=== PATIENT | male | born 2000 | race Caucasian/White ===

== ENCOUNTER → 2024-05-16 10:35 | Outpatient (REF) | payer OTHER, SELFPAY | LOC: HWRAD 10:35 | PROVIDERS: ATTENDING PHYSICIAN Physician Assistant Medical | DX: R07.89 Other chest pain (principal); Z78.9 Other specified health status; M79.604 Pain in right leg; R07.81 Pleurodynia | CPT/HCPCS: 71275; Q9967 ==

== ENCOUNTER 2024-05-16 16:24 | Inpatient (IN) | payer OTHER, SELFPAY ==
[2024-05-16] VITALS (10 sets, daily range): BP systolic 117–142; BP diastolic 67–82; BMI 28.1
--- NOTE | 2024-05-16 12:46 | ED.GENMED ---
History of Present Illness
General
Chief Complaint: Chest Pain
Time Seen by Provider: 05/16/24 12:33
History of Present Illness
History of Present Illness:
23-year-old male without significant past medical history presenting to the emergency department with known pulmonary embolism. Patient reports he had an 8-hour plane ride from [place] 2 weeks ago. About a week later started to have right lower
extremity pain. On Sunday, 4 days ago he started to have right-sided chest pain. He went to see his primary care doctor who ordered a CAT scan outpatient. He had a CAT scan completed today which showed pulmonary embolism, and was advised to come
to the hospital today. Denies any prior history of blood clots. Reports the chest pain was all right-sided, which has overall improved. Denies any present difficulty breathing. Denies any known family history of blood clots or thromboembolism.
Denies any use of medications or supplements. Denies any recent fever or illness. Denies additional acute medical complaints.
Phy Exam
Physical Exam
Physical Exam:
General: Well-appearing, no clinical signs of dehydration, nontoxic and in no acute distress
HEENT: protecting airway
Neck: appears supple
CV: Normal heart rate, regular rhythm, no evidence of cyanosis
Resp: No accessory muscle use, no increased work of breathing, lungs clear to auscultation bilaterally
Abd: Soft and non-distended, no tenderness to palpation, normal bowel sounds
Extremities: No deformities, no swelling, no erythema, pulses and sensation intact
Neuro: alert, no focal neurologic deficit
: deferred
Rectal: deferred
Psych: Normal affect
Skin: Intact
Course
Orders/Labs/Results
Orders:
Orders
05/16/24 12:35
Electrocardiogram (*1) Stat
Reason for Study: Other
Other Reason for Exam: chest pain
EKG- Treatment ONCE
05/16/24 12:44
Complete Blood Count/With Diff Urgent
Comprehensive Metabolic Panel Urgent
NT-proBNP Urgent
PTT Urgent
Prothrombin Time Urgent
Troponin I Q3H
05/16/24 13:00
Heparin 7,700 units IV NOW STA
Heparin 84547 Units/250 ml 25,000 units in 250 ml IV PER PROTOCOL
Weight to be used for heparin protocol in kilograms (kg):: 96.6
Protocol:: DVT/PE
PTT Goal Range to be used:: PTT 73 to 111 seconds
Order type:: Initial
INITIAL Infusion Dose (UNITS/KG/hr) & then follow protocol:: 18 units/kg/hr
Infusion Dose in UNITS/hr & then follow protocol (UNITS/hr):: 1,700
INFUSION RATE in mL/hr & then follow protocol (mL/hr):: 17
For DVT/PE algorithm, re-bolus for low PTT?: Yes
PTT less than or equal to 64 seconds:: Re-bolus 80 units/kg (max 10,000units). Increase by 400 units/hr
(+ 4mL/hr)
PTT 64.1 to 72.9 seconds:: Re-bolus 40 units/kg (max 5,000 units). Increase by 200 units/hr
(+ 2mL/hr)
PTT 73 to 111 seconds:: Target Range. No change in rate.
PTT 111.1 to 130.9 seconds:: Decrease rate by 200 units/hr (- 2 mL/hr)
PTT 131 to 199.9 seconds:: HOLD for 1 hr. Then decrease by 300 units/hr (- 3mL/hr)
PTT greater than or equal to 200 seconds:: HOLD for 2 hrs & Notify Provider. Then decrease by 400 units/hr
(- 4mL/hr)
Lab follow-up:: Each change, PTT q6h until 2 consecutive are therapeutic. Then
PTT daily.
Pharmacy Request to Place See Dose Instructions IV DIRECTED
Pharmacy Request to Place See Dose Instructions PO NOW STA
Discontinue all Active Warfarin orders?: Yes
Nursing to Place Non Medication Order As Directed
Physician Order: PTT 6 hours after initial start of Heparin infusion
05/16/24 15:45
Troponin I Q3H
Abnormal Lab Results
05/16/24
12:44
Absolute Monos (auto) 0.7 H 10^3/uL
(0.1-0.6)
Lymphocytes % 19.5 L %
(20.5-51.1)
Monocytes % 10.8 H %
(1.7-9.3)
05/16/24 12:44
Vital Signs
Initial and Last Documented VS:
Initial Vital Signs
Temp Pulse Resp BP Pulse Ox
97.8 F 81 16 142/77 99
05/16/24 12:22 05/16/24 12:22 05/16/24 12:22 05/16/24 12:22 05/16/24 12:22
Last Documented Vital Signs
Temp Pulse Resp BP Pulse Ox
97.8 F 81 16 142/77 99
05/16/24 12:22 05/16/24 12:22 05/16/24 12:22 05/16/24 12:22 05/16/24 12:22
MDM/Problems Addressed
MDM/Problems Addressed:
23-year-old male without past medical history presenting to the emergency department for known pulmonary embolism. Vital signs on arrival are normal.
CT imaging reviewed on patient's arrival, bilateral pulmonary embolism burden with pulmonary infarcts and concern for right heart strain. Patient however is hemodynamically stable, well-appearing. EKG obtained, no acute ischemic abnormality. Will
plan for laboratory analysis. Will also call PERT alert given embolic burden
12:45 - PERT alert called
12:47 -discussed with ICU, given hemodynamic stability, standard of care. Will start heparin drip and admit to hospitalist service.
*EKG
Interpreted by ED Provider?: Yes
EKG Intrepretation Date: 05/16/24
EKG Intrepretation Time: 13:04
Interpretation: normal
Comparison EKG: no comparison EKG present
Heart Rate: 70
Rate: normal
Rhythm: sinus
[place]: normal axis
Interval: normal interval
QRS Pattern: normal QRS
Ischemia: no ischemia
*Critical Care Note
Total Time (30-74mins, 75-104mins- exclusive of procedures): 35
comment:
The high probability of a clinically significant, sudden or life threatening deterioration of the cardiovascular system(s) required my full and direct attention, intervention and personal management. The aggregate critical care time was 35 minutes.
This time is in addition to time spent performing reported procedures but includes the following:
[x] Data Review and interpretation
[x] Patient assessment and monitoring of vital signs
[x] Documentation
[x] Medication orders and management
ED Attending Note
-
Portions of this chart may have been created with voice recognition software.� Occasional wrong word or��sound alike� substitutions may have occurred due to the inherent limitations of voice recognition software.
Discharge Plan
Departure
Referrals:
Shaun Hernandez MD [Family Provider] -
Interventions
Interventions:
*Risk Screen - Suicide Last Done: 05/16/24 12:22
*General Assessment Last Done: 05/16/24 12:41
*Neglect/Abuse Screening Last Done: 05/16/24 12:22
*ED COVID-19 Vaccine History Last Done: 05/16/24 12:22
ED- Cardiac Assessment Last Done: 05/16/24 12:41
Discharge Date and Time
Print Language: MOROCCAN
[2024-05-16 12:57] LABS: % Basophils 0.5 % (0-2); % Eosinophils 1.7 % (0-6); % Immature Granulocytes 0.3 % (0-0.5); % Lymphocytes 19.5 % (20.5-51.1); % Monocytes 10.8 % (1.7-9.3); % Neutrophils 67.2 % (42.2-75.2); Absolute Eosinophils 0.1 10^3/uL (0-0.7); Absolute Lymphocytes 1.3 10^3/uL (1.2-3.4); Absolute Monocytes 0.7 10^3/uL (0.1-0.6); Absolute Neutrophils 4.5 10^3/uL (1.4-6.5); Hematocrit 44.5 % (39.0-52.0); Hemoglobin 15.9 g/dL (13.0-18.0); Mean Corp Hgb Conc. 35.7 g/dL (33.0-37.0); Mean Corpuscular Hgb 30.1 pg (27.0-31.0); Mean Corpuscular Volume 84.3 fL (80.0-94.0); Mean Platelet Volume 9.6 fL (7.4-10.4); Nucleated Red Blood Cells % 0 % (-); Platelet Count 255 10^3/uL (130-400); Red Blood Cell Count 5.28 10^6/uL (4.70-6.10); Red Cell Dist. Width 11.9 % (11.5-14.5); White Blood Cell Count 6.7 10^3/uL (4.8-10.8)
[2024-05-16 13:12] LABS: ALT (SGPT) 15 U/L (0-50); AST (SGOT) 20 U/L (17-59); Albumin 4.5 g/dl (3.5-5.0); Alkaline Phosphatase 63 U/L (38-126); Blood Urea Nitrogen 13 mg/dl (9-20); Calcium 9.8 mg/dl (8.4-10.2); Carbon Dioxide 27 mmol/L (22-30); Chloride 106 mmol/L (98-107); Estimated Creatinine Clearance > 125 ml/min; Glucose 93 mg/dl (70-99); Potassium 4.8 mmol/L (3.5-5.1); Sodium 138 mmol/L (135-145); Total Bilirubin 0.7 mg/dl (0.2-1.3); Total Protein 6.9 g/dl (6.3-8.2); eGFR > 60.00
[2024-05-16 13:17] LABS: APTT 27.4 Sec (23.4-35.0)
[2024-05-16 13:22] LABS: NT-proBNP < 20.0 pg/ml; Troponin I < 0.012 ng/ml
[2024-05-16] MEDS: HEPARIN 7700 UNITS IV (13:22)
[2024-05-16] MEDS: HEPARIN 25000 UNITS/250 ML IV (13:24)
[2024-05-16] MEDS: FLUSH (NSS) 1 FLUSH IV (15:47)
--- NOTE | 2024-05-16 15:59 | CON.PUL ---
Consultation
Consultation Request
Date/Time Consultation Requested: 05/16/24
Date/Time Consultation Performed: 05/16/24
Performing Provider: Truman
Reason for Consultation: PE
Medical History
-
History of Present Illness:
Patient is a 23-year-old male with previous history of gastroparesis presenting to with right lower extremity pain and right-sided chest pain. He was previously on an 8-hour plane ride from [place] 2 weeks ago. He underwent CT chest as an
outpatient demonstrating multiple bilateral pulmonary embolism. Some were noted to be chronic. He denies any prior history of known lung disease. He is a non-smoker. He does occasionally smoke marijuana. Does not vape. Denies any family history
of VTE or prior personal history.
PERT alert called, not showing signs of hemodynamic instability or right heart strain. He is not a tPA candidate. He is started on IV heparin.
Past Medical History
Past Medical History: Other (see list below)
Social History
Tobacco: Non-smoker
Alcohol: None
Drug: None
Family History
Family History: Reviewed & Not Pertinent
Allergies / Home Medications
Allergies
Allergy/AdvReac Type Severity Reaction Status Date / Time
azithromycin [From Zithromax] Allergy Rash Verified 05/16/24 12:28
Home Medications
�Medication �Instructions �Recorded �Confirmed �Last Taken �Type
No Meds [No Current Medications] 05/16/24 05/16/24 Unknown History
Review of Systems
-
History Source: Patient
All other systems: Negative unless noted
Vitals / Labs / Diagnostic Testing
Vital Signs
Temp Pulse Resp BP Pulse Ox
97.8 F 72 17 128/76 96
05/16/24 12:22 05/16/24 15:00 05/16/24 15:00 05/16/24 15:00 05/16/24 15:00
Lab Data
05/16/24 12:44
05/16/24 12:44
Laboratory Results
05/16/24
12:44
PT 13.0
INR 1.00
APTT 27.4
Diagnostic Testing:
Physical Exam
-
HEENT: Normocephalic, Anicteric and Moist Mucous Membranes
Cardiovascular: S1/S2 and Regular Rhythm
Respiratory: Clear and Non-Labored Respirations
GI: Soft, Non Distended and Non Tender
Neurology: Awake, Alert, Oriented, AO x 3 and No Motor Deficits
Skin: Warm, Dry and Good Color
General: Comfortable and Other (NAD)
Assessment
-
Patient is a 23-year-old male with previous history of gastroparesis presenting to with right lower extremity pain and right-sided chest pain. He was previously on an 8-hour plane ride from [place] 2 weeks ago. He underwent CT chest as an
outpatient demonstrating multiple bilateral pulmonary embolism. Some were noted to be chronic. Denies any family history of VTE or prior personal history. We are consulted for eval 05/16/24.
Acute B/L PE, provoked
Long plan ride/sedentary behavior
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
wisdom tooth extraction
gastroparesis 2014
Plan
No oxygen was needed on admission, currently saturating >90% on RA
No prior history of lung disease is noted
CXR/CT obtained indicating multiple bilateral PE without evidence of right heart strain
PERT alert was called, not a candidate
Troponin and proBNP negative
He is started on IV heparin
Denies family history or personal history of VTE
This is likely a provoked case
We discussed management of provoked PE and continuation on his outpatient
CM consult for eventual transition to OAC
Can transition once available
Weight loss measures recommended
Encouraged to maintain a more active lifestyle
Will need outpatient pulmonary evaluation in our office for PFTs and 6MWT
Reviewed with patient and mother at bedside
We will follow
Diagnostic Data
Chest X-Ray:
CT Scan: CTA 05/16/24- Pulmonary emboli involving multiple bilateral lower lobe subsegmental pulmonary arteries. A few of the pulmonary emboli involving the left lower lobe subsegmental pulmonary arteries are nonocclusive and wall adherent, and given
the appearance, may be chronic.
Small pulmonary infarcts involving the right lower lobe.
Elevated RV to LV ratio with reflux into the IVC which may represent right heart strain. Echocardiogram could be performed for further evaluation.
Echo:
PFT's:
Reports and relevant images were personally reviewed.
Total time spent on this consultation __77__ includes review of history, physical exam, medications, laboratory data, personal review of imaging, extensive review of outpatient records, discussion with care team and respiratory therapy.
--- NOTE | 2024-05-16 16:25 | HPS.HSE ---
Family Physician
-
Family Physician: Shaun Hernandez
Chief Complaint
-
Pulmonary emboli on outpatient CT
History of Present Illness
Patient is a healthy 23-year-old who is here because of bilateral pulmonary emboli found on outpatient chest CT scan. He had a travel to [facility] [place] 2 weeks ago. States when he got back he had pain in his right leg with no swelling or redness.
The pain started to subside and was resolved 4 days ago. Right at the same time, he started to experience a pleuritic chest pain. He mentions the pain was more central and radiated to the neck. Following the CP, he visited his PCP in [facility] on Sunday and an outpatient CT scan was scheduled for him this morning. The CT scan today revealed pulmonary emboli involving multiple bilateral lower lobe subsegmental pulmonary arteries. Small pulmonary infarcts involving the right
lower lobe and elevated RV to LV ratio with reflux into the IVC which may represent right heart strain. Denies any fever or palpitations during this time. Denies any recent medication changes or use of recreational drugs. Does not give a history
of prior blood clots. Denies any history of hypercoagulation in family members. The chest pain currently is more lateralized to the right side and does not radiate.
Medical History
Past Medical History
Past Medical History: Reports None
Past Surgical History: Reports None
Social History
Tobacco: Non-smoker
Alcohol: Occasional
Drug: None
Personal: Single
Living: With Family
Family History
Family History: Not pertinent and Other (No history of blood clots in family)
Allergies / Home Medications
Allergies reflects when Allergies were last updated in [facility].
Home Medications with original date entered in [facility]
Allergy/Medication List:
Allergies
Allergy/AdvReac Type Severity Reaction Status Date / Time
azithromycin [From Zithromax] Allergy Rash Verified 05/16/24 12:28
Home Medications
No Meds [No Current Medications] 05/16/24
Review of Systems
-
History Source: Patient
A 12 point ROS was completed and negative except as noted: Yes
Physical Exam
Vital Signs
Vital Signs
Temp Pulse Resp BP Pulse Ox
97.8 F 77 16 126/82 97
05/16/24 12:22 05/16/24 16:00 05/16/24 16:00 05/16/24 16:00 05/16/24 16:00
Physical Exam
General: Well Developed and No Apparent Distress
HEENT: NormoCephalic and Atraumatic
Respiratory: Clear
Cardiac: S1/S2 and Regular Rhythm
GI: Soft, Non Tender and Non Distended
Musculoskeletal: No Cyanosis and No Edema
Skin: Warm
Neuro: Awake, Alert, Oriented and AO x 3
Psych: Calm
Laboratory Results
-
05/16/24 12:44
05/16/24 12:44
Laboratory Results
PT 13.0 Sec (11.4-14.6) 05/16/24 12:44
INR 1.00 05/16/24 12:44
APTT 27.4 Sec (23.4-35.0) 05/16/24 12:44
Total Bilirubin 0.7 mg/dl (0.2-1.3) 05/16/24 12:44
AST 20 U/L (17-59) 05/16/24 12:44
ALT 15 U/L (0-50) 05/16/24 12:44
Alkaline Phosphatase 63 U/L (38-126) 05/16/24 12:44
Troponin I < 0.012 ng/ml 05/16/24 12:44
Data Reviewed
-
Critical Care Time (in minutes): 30
Impression/Plan
-
IMPRESSION:
Bilateral pulmonary emboli
PLAN:
Heparin drip started
PERT alert given embolic burden
EKG--no acute ischemic abnormality
Echo
CBC and heme stool
Doppler ultrasound
Pulmonary consult
Case management consult to check cost of Eliquis
Diet regular
Activity as tolerated
CODE STATUS: full code
[2024-05-16 16:30] LABS: Troponin I < 0.012 ng/ml
--- NOTE | 2024-05-16 16:30 | W.PN.UPDATE ---
Update Note
Progress Note Update
I personally performed a history and physical exam of the patient and discussed management with the resident. I reviewed the resident's note and agree with the documented findings and plan of care HPI/CC.
23-year-old gentleman with no past medical history presents with right leg pain and chest pain after recent traveling in [place] and [place] flight journey.
initially noticed right leg pain without swelling and then after that he had normal right leg pain but developed acute chest pain in the same day on Sunday. Went to see PCP who requested a chest CT which showed bilateral PE so referred to the
hospital.
Has some right-sided pleuritic chest pain but no dizziness. He is hemodynamically stable. Chest is clear. Not tachycardic.
Chest CT shows bilateral right more than left subsegmental PE with right pulmonary infarct. There was reflux of contrast IVC raising concern of increased right-sided pressure. The RV to LV ratio is more than 1 again concerning for RV strain.
Again he is hemodynamically stable. Not hypoxic.
No indication for acute thrombolysis.
Will get a echocardiogram to document the baseline RV pressures. Start on IV heparin. Check an ultrasound of the legs. Heme test stools. Consult pulmonary.
Discussed the diagnosis and treatment plan with the mother at bedside as well.
[2024-05-16] MEDS: TYLENOL 650 MG PO (20:00)
[2024-05-16] MEDS: TORADOL 15 MG IV (22:39)
[2024-05-17 01:48] LABS: APTT 63.4 Sec (23.4-35.0)
[2024-05-17] MEDS: HEPARIN 7700 UNITS IV (02:14)
[2024-05-17 03:00] VITALS: BP 118/67
[2024-05-17] MEDS: HEPARIN 25000 UNITS/250 ML IV (03:26)
[2024-05-17 07:15] VITALS: BP 130/80
[2024-05-17 09:48] LABS: Hematocrit 43.7 % (39.0-52.0); Hemoglobin 15.5 g/dL (13.0-18.0); Mean Corp Hgb Conc. 35.5 g/dL (33.0-37.0); Mean Corpuscular Hgb 29.2 pg (27.0-31.0); Mean Corpuscular Volume 82.5 fL (80.0-94.0); Mean Platelet Volume 9.8 fL (7.4-10.4); Platelet Count 269 10^3/uL (130-400); Red Cell Dist. Width 11.9 % (11.5-14.5); White Blood Cell Count 5.6 10^3/uL (4.8-10.8)
[2024-05-17 10:02] LABS: APTT 111.4 Sec (23.4-35.0)
--- NOTE | 2024-05-17 10:51 | W.PN.HOSP.TC ---
Today's Communication/Plan
-
Trend PTT- Follow-up with case management regarding cost of Eliquis
Assessment / Plan
Assessment / Plan
Patient is a 23-year-old male presenting to with outpatient chest CT demonstrating multiple bilateral pulmonary embolism. Some were noted to be chronic.
-Continue IV heparin-trend PTT
-Currently saturating 98% on RA, No oxygen needed
-Troponin and proBNP negative, echo shows mild MS, mild RVE, no pulmonary hypertension, EF 55 to 60%
- consult for eventual transition to OAC--can transition once available
-Appreciate pulm--outpatient PFTs
Anticipated Discharge: Within 24 hours
Subjective/Interval History
-
Date of Service: May 17, 2024
Patient is currently hemodynamically stable and does not have significant chest pain. Mentions he had difficulty breathing last night around 10 PM w progressive R-sided chest pain. Symptoms subsided after receiving a dose of Toradol. Did not
require supplemental O2 overnight.
Objective Data
-
Labs:
Laboratory Results
05/17/24 05/17/24 05/17/24
01:28 09:09 14:30
WBC 5.6
Hgb 15.5
Hct 43.7
Plt Count 269
APTT 63.4 H 111.4 H Pending
Vital Signs:
Vital Signs
Temp Pulse Resp BP Pulse Ox
97.3 F 65 16 130/80 98
05/17/24 07:15 05/17/24 07:15 05/17/24 07:15 05/17/24 07:15 05/17/24 07:15
Review of Systems
-
History Source: Patient
All other systems: Reviewed and negative
Cardiac: Reports Chest Pain (Mild pleuritic chest pain at this time)
Physical Exam
-
General: Well Developed and No Apparent Distress
Respiratory: Clear to Auscultation and Non Labored Respirations
Cardiac: Regular Rhythm and S1/S2
Neuro: Awake, Alert, Oriented and AO x 3
Psych: Calm
[2024-05-17 11:35] VITALS: BP 137/81
--- NOTE | 2024-05-17 12:01 | W.PN.PUL.V3 ---
Today's Communication / Plan
-
Intravenous heparin
Convert to oral anticoagulant and treat for minimum of 3-6 months
Outpatient pulmonary evaluation
Consider hypercoagulable workup-this event likely provoked
Assessment
-
Patient is a 23-year-old male with previous history of gastroparesis presenting to with right lower extremity pain and right-sided chest pain. He was previously on an 8-hour plane ride from [place] 2 weeks ago. He underwent CT chest as an
outpatient demonstrating multiple bilateral pulmonary embolism. Some were noted to be chronic. Denies any family history of VTE or prior personal history. We are consulted for eval 05/16/24.
Acute B/L PE, provoked
Long plan ride/sedentary behavior
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
wisdom tooth extraction
gastroparesis 2014
Plan
Respiratory status improved
Supplemental oxygen as needed
Increase activity
Nebulizers if needed-currently not bronchospastic
CT chest reviewed-multiple bilateral pulmonary emboli with possible right ventricular strain
Echocardiogram 05/16/2024-EF 55-60%, mild mitral regurgitation, no evidence of pulmonary hypertension, mild right ventricular enlargement
Lower extremity ultrasound 05/16/2024-no evidence of DVT in both lower extremities
Troponin and proBNP negative
Continue IV heparin
Convert to oral anticoagulant and treat for minimum of 3 months
Subsequent outpatient evaluation and determination on when to discontinue anticoagulants and whether hypercoagulable workup is needed
Benefits and risks of thrombolytics reviewed-risks outweigh benefits-continue with conservative therapy
Weight loss measures recommended
Encouraged to maintain a more active lifestyle
Will need outpatient pulmonary evaluation in our office for PFTs and 6MWT
Diagnostic Data
Chest X-Ray:
CT Scan: CTA 05/16/24- Pulmonary emboli involving multiple bilateral lower lobe subsegmental pulmonary arteries. A few of the pulmonary emboli involving the left lower lobe subsegmental pulmonary arteries are nonocclusive and wall adherent, and given
the appearance, may be chronic.
Small pulmonary infarcts involving the right lower lobe.
Elevated RV to LV ratio with reflux into the IVC which may represent right heart strain. Echocardiogram could be performed for further evaluation.
Reports and relevant images were personally reviewed.
.
Subjective Data
-
Date of Service:
Date of Service: May 17, 2024
Chief Complaint: Pulmonary Follow Up and VTE Follow Up
Subjective:
Feels better, no shortness of breath, no pleurisy, no chest congestion, productive cough, mopped assist, abdominal pain or leg swelling
Review of Systems
General: Other (Per HPI)
Objective Data
Data Reviewed
Vital Signs / I&O:
Vital Signs
Temp Pulse Resp BP Pulse Ox
97.5 F 78 16 137/81 98
05/17/24 11:35 05/17/24 11:35 05/17/24 11:35 05/17/24 11:35 05/17/24 11:35
SaO2: 98
Physical Exam
General: Respiratory Distress (n) and Comfortable
HEENT: Normocephalic, Anicteric and Moist Mucous Membranes
Cardiovascular: Regular Rhythm, Murmur, Rub, Peripheral Edema (n), Calf Tenderness (n) and Michael's Sign (n)
Respiratory: Clear, Wheeze, Crackles (n), Rhonchi (n), Non-Labored Respirations, Accessory Resp Muscle Use (n) and Stridor (n)
GI: Soft, Non Distended and Non Tender
Neurology: Awake, Alert and No Motor Deficits
Skin: Warm, Good Color, Cyanosis (n), Jaundice (n) and Rash (n)
Labs/Micro/Reports
Lab Data
05/17/24 09:09
05/16/24 12:44
Laboratory Results
05/16/24 05/16/24 05/17/24
12:44 19:17 01:28
PT 13.0
INR 1.00
APTT 27.4 80.0 H 63.4 H
05/17/24
09:09
PT
INR
APTT 111.4 H
--- NOTE | 2024-05-17 12:59 | W.PN.UPDATE ---
Update Note
Progress Note Update
I saw and evaluated the patient. I reviewed the resident�s note and agree with findings and plan as documented in the resident�s note.
Patient had some left-sided pleuritic chest pain which got relieved by Toradol. He gets now only right-sided pleuritic discomfort on deep inspiration. Otherwise he is stable without shortness of breath. Hemodynamically stable. Not on oxygen.
Chest clear.
No evidence of DVT. Continue with IV heparin till we know his coverage for Eliquis.
If okay from pulmonary standpoint we will discharge him later today.
He is made aware about risk of bleeding and what to do when bleeding happens- stop eliquis and come back to ER.
No contact sports with AC.
He will follow with pulm as OP on DC.
Total time of DC 32 min.
[2024-05-17 15:15] VITALS: BP 124/72
[2024-05-17 15:33] LABS: APTT 52.7 Sec (23.4-35.0)
--- NOTE | 2024-05-17 15:43 | CM ---
Patient seen at bedside with mother and father present. Patient remains on patient mother insurance. Patient lives with parents in 2 story home. Patient PCP is Dr. Hernandez and he uses the [facility]. Patient has no DME at home. Patient plan
is for discharge home with family supports. CM called to pharmacy regarding cost, 25.00$ per pharmacy and [employer], CM will provide coupon. CM will continue to follow for discharge planning needs.
Plan; home with no needs.
[2024-05-17] MEDS: ELIQUIS 10 MG PO (18:43)
--- NOTE | 2024-05-17 19:04 | W.DS.TRANS ---
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
-
Discharge Instructions:
Discharge Diagnosis/Procedures Subsegmental pulmonary emboli
Diet As tolerated
Activity As tolerated
Driving Restrictions As prior to admission
Bathing Restrictions OK to Shower
Instructions:
Stand-Alone Forms:
Changes to Home Medications: Yes
Discharge Medications:
DC Medications w/original date entered in [facility]
acetaminophen 325 mg tablet 650 mg (2 x 325 mg) PO Q6HPRN PRN mild pain/ fever>100.5F #1 tab 05/17/24
apixaban 5 mg (74 tabs) tablets in a dose pack (Eliquis DVT-PE Treat 30D Start) See Rx Instructions PO .COMPLEX #74 ea 05/17/24
ibuprofen 200 mg tablet 400 mg (2 x 200 mg) PO Q8H PRN Pain #1 tab 05/17/24
Home Medication Changes
New medication: Eliquis 10 mg daily for 7 days, 5 mg twice daily for next 30 days
Pending Results: No
--- NOTE | 2024-05-18 10:30 | W.DCSUMMARY ---
Discharge Summary
Discharge Data
Date of Admission: 05/16/24
Date of Discharge: 05/17/24
Total time spent discharging patient (in min): 40
-
Pending Results: No
Hospital Course
Patient is a healthy 23-year-old who came to the ED with bilateral pulmonary emboli found on outpatient chest CT scan. He had a travel to [facility] 2 weeks ago. Stated when he returned, he noticed pain in his right leg but no swelling or
redness. The pain started to subside and was resolved 4 days prior to admission however on the same day, he started to experience a pleuritic chest pain. He mentioned the pain was more central and radiated to the neck. Following the CP, he visited
his PCP in [facility] and an outpatient chest CT was scheduled for him (05/16). CT revealed pulmonary emboli involving multiple bilateral lower lobe subsegmental pulmonary arteries (some noted to be chronic), small pulmonary infarcts
involving the right lower lobe and elevated RV/LV with reflux into the IVC suggesting right heart strain. He denied any recent medication changes or use of recreational drugs. Did not give a history of prior blood clots in himself or family
members. On admission, he had right sided pleuritic chest pain but his hemodynamics were stable. EKG was normal. PERT alert was immediately placed and heparin drip started. Patient was admitted for IV anticoagulation and further evaluation.
# Bilateral pulmonary emboli most likely provoked in the setting of long plane ride/sedentary behavior: Patient continued to receive IV heparin during stay and received first dose of Eliquis prior to discharge. He was consistently saturating > 94%
on RA and did not need supplemental oxygen. Troponin and proBNP negative, echo showed mild AL, mild RVE, no pulmonary hypertension, EF 55 to 60%. Pulmonary service recommended oral anticoagulant for minimum of 3-6 months and outpatient PFT.
Patient is in good clinical condition and is stable for discharge to home.
Discharge Plan
-
Patient Disposition: Home (Routine Discharge)
Discharge Diagnosis/Procedures: Subsegmental pulmonary emboli
Diet: As tolerated
Activity: As tolerated
Driving Restrictions: As prior to admission
Bathing Restrictions: OK to Shower
Referrals:
Roxy Laughlin, [Active] - in two to four weeks
(Dr. Laughlin or ACTIVE DIRECTORY ENGINEER
PFTs and 6-minute walk test)
Shaun Hernandez MD [Family Provider] - in less than 1 week
Prescriptions:
New
acetaminophen 325 mg Tablet
650 mg PO Q6HPRN PRN (Reason: mild pain/ fever>100.5F) Qty: 1 0RF
Eliquis DVT-PE Treat 30D Start 5 mg (74 tabs) tablets,dose pack
See Rx Instructions .ROUTE .COMPLEX Qty: 74 0RF
Rx Instructions:
orally per package directions
ibuprofen 200 mg tablet
400 mg PO Q8H PRN (Reason: Pain) Qty: 1 0RF
Rx Instructions:
Use PRN for one week
Discharge Orders:
Discharge Patient (As Directed); Ordered 05/17/24
Ordered By: Brendon Abbott
Discharge Date and Time
Discharge Date/Time: 05/17/24 18:56
Print Language: [id number]
== END 2024-05-17 18:56 | disposition home or self-care (01) | DRG 176 ==
LOC: 4 EAST ACU 16:24
PROVIDERS: ADMITTING PHYSICIAN Internal Medicine; CONSULT PHYSICIAN Internal Medicine; EMERGENCY PHYSICIAN Student in an Organized Health Care Education/Training Program; FAMILY PHYSICIAN Family Medicine
DX: I26.94 Multiple subsegmental thrombotic pulmonary emboli without acute cor pulmonale (principal); K31.84 Gastroparesis
CPT/HCPCS: 80053; 83880; 84484; 85025; 85027; 85610; 85730; 93005; 93306; 93970; 96365; 96366; 99291